=== PATIENT | female | born 1990 | race African-American/Black ===

== ENCOUNTER 2018-03-09 15:17 | Emergency (ER) | payer OTHER ==
[~2018-03-09] VITALS: Ht 165.1 cm; Wt 83.0 kg
[~2018-03-09 15:17] MED LIST: LAC PO; MAC100 PO; ZOFRAN8 MG PO
[2018-03-09 15:21] VITALS: Ht 165.1 cm; Wt 83.0 kg
[2018-03-09 16:04] LABS: UA SPECIFIC GRAVITY 1.025 (1.005-1.035); microscopic required? YES; urine erythrocyte NEGATIVE (NEGATIVE)
[2018-03-09 18:06] VITALS: BP 110/77
== END 2018-03-09 18:06 | disposition home or self-care (01) ==
LOC: ED 15:17
PROVIDERS: Specialist
DX: N76.0 Acute vaginitis (principal); N39.0 Urinary tract infection, site not specified; J45.909 Unspecified asthma, uncomplicated; Z91.018 Allergy to other foods
CPT/HCPCS: 87491; 87591